=== PATIENT | female | born 1955 | race Caucasian/White ===

== ENCOUNTER → 2020-12-16 11:33 | Outpatient (BNVA) | payer OTHER, SELFPAY | PROVIDERS: Family Provider Internal Medicine; PCP Internal Medicine; Visit Provider Internal Medicine Pulmonary Disease | DX: Z01.812 Encounter for preprocedural laboratory examination (principal) | CPT/HCPCS: 87635 ==

== ENCOUNTER 2020-12-21 10:12 | Outpatient (CLI) | payer OTHER, SELFPAY ==
--- NOTE | 2020-12-21 10:20 | CT_ITS ---
WS: [id number] LDCT LUNG CANCER SCREENING HISTORY: TOBACCO USE TECHNIQUE: Axial imaging performed from the apices to 1 cm below the costophrenic angles. Coronal and sagittal reformats are submitted with axial MIP series. All CT scans at [facility] use at least one of these dose optimization techniques: automated exposure control; mA and/or kV adjustment per patient size (includes targeted exams where dose is matched to clinical indication); or iterativ e reconstruction. DLP: 59.73 mGy.cm DIvol: 1.58 mGy COMPARISON: None available. Diagnostic quality: Satisfactory Lung Nodules: Biapical pleural thickening and scarring. Probably due to fibrosis. No pulmonary nodule s are identified. No endobronchial lesions. Lungs: Moderate chronic emphysema and prior granulomatous disease. Heart: Normal size heart. No pericardial effusion. Other findings: Mild enlargement of the pulmonary artery. Moderate atherosclerosis aorta. CT/CT lung screening 29032 IMPRESSION: LUNG-RADS: 2-Benign Appearance or Behavior FOLLOW UP: 12 Month: Continue annual screening with LDCT OTHER FINDINGS (S MODIFIER): None.
== END 2020-12-21 10:13 | disposition home or self-care (01) ==
PROVIDERS: PCP Internal Medicine; Visit Provider Internal Medicine Pulmonary Disease
DX: Z12.2 Encounter for screening for malignant neoplasm of respiratory organs (principal); Z87.891 Personal history of nicotine dependence; I70.0 Atherosclerosis of aorta
CPT/HCPCS: 71271; 94060; 94726; 94729

== ENCOUNTER 2021-01-15 15:19 | Outpatient (CLI) | payer OTHER, SELFPAY ==
--- NOTE | 2021-01-15 15:45 | XR_ITS ---
WS: [id number] SCREENING DEXA SCAN [employer] CLINICAL INFORMATION: rule out osteporosis COMPARISON: None. FINDINGS: The L1-L4 bone mineral density measures 1.140 g/cm2. This corresponds to a T score score of -0.3 and Z score of 1.1. Left femoral neck bone mineral density measures 0.813 g/cm2. This corresponds to a T score of -1.5 an d Z score of -0.5. Right femoral neck bone mineral density measures 0.723 g/cm2. This corresponds to a T score -2.3of an d Z score of -1.2. Mean femoral neck bone mineral density measures 0.768 g/cm2. This corresponds to a T score of -1.9 an d Z score of -0.8. XR/XR DEXA axial skeleton* [id number] IMPRESSION: Osteopenia in the femoral necks. Normal bone mineralization lumbar spine. Patient's FRAX calculated 10 year probability for major osteoporotic fracture i s 11.9 % and osteoporotic hip fracture is 2.2%.
== END 2021-01-15 15:20 | disposition home or self-care (01) ==
LOC: RADWPI 15:24
PROVIDERS: Visit Provider Internal Medicine Pulmonary Disease
DX: M81.0 Age-related osteoporosis without current pathological fracture (principal); M85.88 Other specified disorders of bone density and structure, other site
CPT/HCPCS: 77080

== ENCOUNTER 2021-01-23 14:10 | Outpatient (CLI) | payer OTHER, SELFPAY | END 2021-01-23 14:11 | disposition home or self-care (01) | LOC: RT 15:20 | PROVIDERS: Visit Provider Internal Medicine Pulmonary Disease | DX: R06.02 Shortness of breath (principal) | CPT/HCPCS: 94618 ==

== ENCOUNTER → 2022-07-13 10:52 | Outpatient (BNVA) | payer OTHER, SELFPAY | PROVIDERS: Visit Provider Nurse Practitioner | DX: J06.9 Acute upper respiratory infection, unspecified (principal); B34.9 Viral infection, unspecified | CPT/HCPCS: 87426 ==

== ENCOUNTER → 2022-11-28 10:32 | Outpatient (BNVA) | payer OTHER, SELFPAY | PROVIDERS: Visit Provider Student in an Organized Health Care Education/Training Program | DX: M23.304 Other meniscus derangements, unspecified medial meniscus, left knee (principal); S89.92XA Unspecified injury of left lower leg, initial encounter; W19.XXXA Unspecified fall, initial encounter | CPT/HCPCS: 73560; 73565 ==

== ENCOUNTER → 2024-02-26 09:11 | Outpatient (BNVA) | payer OTHER, SELFPAY | PROVIDERS: PCP Family Medicine; Visit Provider Podiatrist Foot & Ankle Surgery | DX: M76.812 Anterior tibial syndrome, left leg; M76.811 Anterior tibial syndrome, right leg | CPT/HCPCS: 73630 ==

== ENCOUNTER → 2024-04-19 16:13 | Outpatient (BNVA) | payer OTHER, SELFPAY | PROVIDERS: PCP Family Medicine; Visit Provider Podiatrist Foot & Ankle Surgery | DX: M19.079 Primary osteoarthritis, unspecified ankle and foot (principal); Z79.899 Other long term (current) drug therapy | CPT/HCPCS: 36415; 85025; 85651; 86140; 86160; 86162; 86200; 86235; 86255; 86376; 86431 ==

== ENCOUNTER 2024-05-11 12:46 | Outpatient (CLI) | payer OTHER, SELFPAY ==
[2024-05-11 13:51] LABS: Uric Acid 4.4 mg/dL (2.4-5.7)
== END 2024-05-11 12:47 | disposition home or self-care (01) ==
LOC: LAB 12:48
PROVIDERS: PCP Family Medicine; Visit Provider Podiatrist Foot & Ankle Surgery
DX: M76.812 Anterior tibial syndrome, left leg (principal); M76.811 Anterior tibial syndrome, right leg; M19.079 Primary osteoarthritis, unspecified ankle and foot
CPT/HCPCS: 36415; 84550

== ENCOUNTER 2025-01-25 11:09 | Outpatient (CLI) | payer SELFPAY ==
[2025-01-25 12:10] LABS: HF Add Manual Diff No
[2025-01-25 12:31] LABS: Basophils % 0.3 %; Eosinophils % 0.3 %; Lymphocytes # 1.4 10^3/uL (0.8-4.8); Lymphocytes % 22.6 %; Mean Corpuscular HGB Conc 32.9 g/dL (30-55); Mean Corpuscular Hemoglobin 30.7 pg (27-33); Mean Corpuscular Volume 93.5 fl (85-98); Mean Platelet Volume 9.2 fL (7.4-10.4); Monocytes # 0.5 10^3/uL (0.2-0.9); Monocytes % 7.2 %; Neutrophils # 4.34 10^3/uL (1.8-7.7); Neutrophils % 69.4 %; Nucleated Red Blood Cells % 0 %; Platelet Count 284 10^3/cmm (157-399); Red Blood Count 4.49 10^6/uL (3.85-5.65); Red Cell Distribution Width 12.3 % (12.1-15.1); White Blood Count 6.25 10^3/uL (3.29-11.43)
[2025-01-25 12:56] LABS: Alanine Aminotransferase 14 U/L (0-33); Albumin Level 4.1 g/dL (3.5-5.2); Alkaline Phosphatase 90 U/L (35-105); Aspartate Amino Transferase 17 U/L (0-32); Blood Urea Nitrogen 16 mg/dL (8-23); Calcium 9.6 mg/dL (8.5-10.5); Carbon Dioxide 23 mmol/L (22-29); Chloride 105 mmol/L (98-107); Cholesterol 226 mg/dL (0-200); Glomerular Filtration Rate 83.5 mL/min (90-130); Glucose 122 mg/dL (65-115); HDL Cholesterol 87 mg/dL (60-100); LDL Cholesterol Calculated 113 mg/dL (50-129); Osmolality Calculated 294 mOsm/kg (285-295); Sodium 141 mmol/L (136-145); Total Bilirubin 0.3 mg/dL (0.15-1.2); Total Protein 7.1 g/dL (6.6-8.7); Triglycerides 128 mg/dL (0-150)
[2025-01-25 13:10] LABS: Estmated Average Glucose 117; Hemoglobin A1C 5.7 % (4.0-6.0)
[2025-01-25 13:42] LABS: 25 Hydroxy Vitamin D 46 ng/mL (30-100)
== END 2025-01-25 11:10 | disposition home or self-care (01) ==
LOC: LAB 11:10
PROVIDERS: PCP Family Medicine; Visit Provider Dermatology
DX: Z01.89 Encounter for other specified special examinations (principal)